=== PATIENT | male | born 1960 | race Caucasian/White ===

== ENCOUNTER 2017-09-09 09:44 | Outpatient (CLI) | payer MEDICARE ==
[2017-09-09 11:16] LABS: Hemoglobin 13.7 g/dL (14.0-18.0); Mean Corpuscular Hemoglobin 31.4 pg (27.0-31.0); Mean Corpuscular Volume 95.1 fl (80.0-94.0); Mean Platelet Volume 7.8 fL (7.4-10.4); Platelet Count 238 thou/uL (130-400); RBC Distribution Width 11.8 % (11.5-14.5); Red Blood Cell (RBC) Count 4.37 mill/uL (4.70-6.10); White Blood Cell (WBC) Count 8.3 thou/uL (4.8-10.8)
[2017-09-09 11:24] LABS: Prothrombin Time 13.5 SEC (12.0-14.7)
[2017-09-09 11:25] LABS: PTT 36.3 SEC (22.9-36.1)
[2017-09-09 11:28] LABS: ALT (SGPT) 43 U/L (8-55); AST (SGOT) 29 U/L (5-34); Albumin 4.6 g/dL (3.5-5.0); Alkaline Phosphatase 43 U/L (40-150); Anion Gap 15 mmol/L (10-20); BUN (Urea Nitrogen) 14 mg/dL (8.4-25.7); Bilirubin, Total 0.5 mg/dL (0.2-1.2); Calc. Creatinine Clearance 0 mL/min (70-130); Calcium 10.1 mg/dL (7.8-10.44); Carbon Dioxide 23 mmol/L (22-29); Cardiac Risk 5.2 (Less than 4.5); Chloride 106 mmol/L (98-107); Cholesterol 161 mg/dl (< 200 Desired); Estimated GFR-MDRD 57; Globulin 2.8 g/dL (2.4-3.5); Glucose 108 mg/dL (70-105); HDL Cholesterol 31 mg/dL (>60 Neg Risk); LDL Cholesterol, Calculated 98 mg/dL; Potassium 4.4 mmol/L (3.5-5.1); Protein, Total 7.4 g/dL (6.0-8.3); Sodium 140 mmol/L (136-145); Triglycerides 162 mg/dL (Less than 150)
--- NOTE | 2017-09-09 19:56 | EKG ---
Test Reason : Blood Pressure : / mmHG Vent. Rate : 067 BPM Atrial Rate : 067 BPM P-R Int : 160 ms QRS Dur : 082 ms QT Int : 386 ms P-R-T Axes : 028 045 -05 degrees QTc Int : 407 ms Normal sinus rhythm Low voltage QRS Cannot rule out Anterior infarct (cited on or before 08-JAN-2015) Abnormal ECG When compared with ECG of 15-JAN-2015 19:24, T wave inversion now evident in Inferior leads Confirmed by KIRSTY PEPPER, SCrescencio ([id number]) on 09/09/2017 7:56:00 PM Referred By: CHRISSY Confirmed By:DR. Alli LOFTON MD
== END 2017-09-09 09:45 | disposition home or self-care (01) ==
LOC: LABBT 09:44
PROVIDERS: ATTEND Internal Medicine Cardiovascular Disease
DX: Z01.812 Encounter for preprocedural laboratory examination (principal); I25.10 Atherosclerotic heart disease of native coronary artery without angina pectoris
CPT/HCPCS: 80053; 80061; 85027; 85610; 85730; 93005; 93010

== ENCOUNTER 2017-09-10 05:58 | Day surgery (SDC) | payer MEDICARE ==
[2017-09-09 10:07] VITALS: BMI 32.1
[2017-09-10] MEDS ORDERED: Heparin 10,000 UNITS/1 ML VIAL ONE (08:06)
[2017-09-10] MEDS ORDERED: Nitroglycerin 100MG/250ML BOT 250 ML ONE (08:06)
--- NOTE | 2017-09-10 10:33 | HP ---
INDICATION: This is a 57-year-old patient with a history of known coronary artery disease who was se en today in the outpatient facility setting to undergo angioplasty and stent placement to the right c oronary artery, which is the planned procedure. He was seen in the office back in 06/2017 for a lilibeth tablishment of cardiac care. He has had a pacemaker implanted in 01/2015, did not been seen in the [facility] since that due to the insurance, but as then returned, the interrogation showed kallie l threshold impedances. His function was essentially normal. He did complain of some chronic fatigu e and shortness of breath with mild exertion. The blood pressure was slightly elevated in the office , but then on repeat evaluation, it was found to be normal. He had a history of hypercholesterolemia , but it has been under relatively good control. He did not have any significant complaints for sign ificant chest pain or any other significant claudication type symptoms, but he originally was seen re cently for an acute FL. He has known coronary artery disease. He has undergone bypass surgery. He had been treated medically and was doing stable, but due to his fatigue and lack of followup, he was advised to undergo stress testing. He did undergo a stress test and was found to have inferior wall ischemia. He underwent cardiac catheterization and diagnostic study and was found to have severe rig ht coronary artery stenosis. He is being advised at this time to undergo angioplasty and stent place ment likely to the right coronary artery. His previous echocardiogram showed an ejection fraction of 60%-65% with grade II diastolic dysfunction and aortic valve sclerosis with some left atrial dilatat ion. PAST MEDICAL HISTORY: Significant for hypertension, dyslipidemia, history of TIAs, obstructive sleep apnea. He just uses a CPAP mask. He has had coronary artery disease and bypass surgery. He has hi story of sick sinus syndrome, has had pacemaker insertion due to sick sinus syndrome. He has hypothy roidism, type 2 diabetes. He has had CVAs. ALLERGIES: None. MEDICATIONS: Include Lovastatin 20 mg daily, metformin 500 mg b.i.d., Benicar/HCT 40 mg/12.5 mg 1 ta blet daily, Tirosint 25 mcg daily, Coreg 3.125 mg b.i.d. REVIEW OF SYSTEMS: General: Negative for weight gain, weight loss or fever. HEENT: No visual shahid ges or HEENT changes. Respiratory: He had no respiratory complaints except that he uses a CPAP mask . Cardiovascular: He complains of fatigue, but no significant chest discomfort, diaphoresis, palpit ations or syncope. Pacemaker function was normal and he has had no complaints from this perspective. He denied any claudication. Gastrointestinal: He had no significant complaints of nausea, vomitin g, or diarrhea. Genitourinary: He had no hematuria, nocturia, no history of erectile dysfunction. He had no history of tremors or goiters recently, no problem with thyroid. He is treated medically. Neurological: He has had some history of TIAs and has been complaining of some dizziness still, whi ch may be associated with his previous CVA. Psychiatric: He had no complaints of depression or taylor ucination. Skin: Negative for any rashes or skin sores. Musculoskeletal: He had no musculoskeleta l complaints. PHYSICAL EXAMINATION: GENERAL: Reveals a well-developed, well-nourished gentleman. VITAL SIGNS: Blood pressure 134/83, heart rate 73 and regular, respiratory rate 16. He is afebrile. HEENT: Shows head to be normocephalic and atraumatic. Carotid pulses are present. There were no br uits present. CHEST: Clear to auscultation, no rales, rhonchi or wheezing. CARDIOVASCULAR: Exam reveals a regular rate and rhythm, normal S1, S2, no S3, S4. There were no sig nificant murmurs, heaves, thrills, bruits or rubs. ABDOMEN: Soft and nontender, flat, positive bowel sounds. EXTREMITIES: Show no clubbing, cyanosis or edema. He has a well-healed midline surgical incision af ter his bypass surgery. NEUROLOGIC: The patient appears to be weak on the right upper extremity and right lower extremity. Otherwise, he is conscious and alert. SKIN: Warm and dry. IMPRESSION: 1. Coronary artery disease with history of previous bypass surgery and abnormal stress testing with cardiac catheterization, which indicated severe right coronary artery stenosis which will undergo ang ioplasty and stent placement. 2. Pacemaker insertion, which is stable without problems. We will continue to check him on a routin e basis. 3. Essential hypertension, this is under very good control at this time. We will continue his same medications. 4. History of hyperlipidemia. He is on chronic pharmacological therapy and tolerating medicines antoinette te well. We will continue to try to keep an LDL less than 70. 5. Atherosclerosis, coronary artery disease as noted above. No evidence of angina, but the patient does have diabetes and may not be experiencing chest discomfort, but he did have an abnormal stress t est. He understands the procedure. We have discussed this as far as angioplasty and stent placemen t. I explained the procedure and the risks to him to include bleeding, infection, possibly a myocard ial infarction, cerebrovascular accident, renal insufficiency, allergic contrast reaction, and even t he possibility of . He understands and agrees to proceed. We will plan for procedure this netta ing.
[2017-09-10] MEDS ORDERED: Iopamidol 370 76% 50 ML VIAL FS ONE (16:11)
[2017-09-10] MEDS ORDERED: Iopamidol 370 76% 100 ML VIAL ONE (16:11)
--- NOTE | 2017-09-10 22:33 | DIS ---
INDICATION FOR THE OUTPATIENT PROCEDURE: A 57-year-old patient with known coronary artery disease, s estefaníaus post bypass surgery who underwent a recent stress testing and was found to have an inferior wal l ischemia, underwent cardiac catheterization and was found to have severe stenosis of the right sarah nary artery, also has a history of dyslipidemia, hypertension, history of transient ischemic attacks, obstructive sleep apnea, history of sick sinus syndrome and pacemaker insertion, also type 2 diabete s, cerebrovascular accidents in the past and hypothyroidism. DISCHARGE DIAGNOSES: A 57-year-old patient with known coronary artery disease, status post bypass sheikh rgery who underwent a recent stress testing and was found to have an inferior wall ischemia, underwen t cardiac catheterization and was found to have severe stenosis of the right coronary artery, also núñez s a history of dyslipidemia, hypertension, history of transient ischemic attack, obstructive sleep ap kelly, history of sick sinus syndrome and pacemaker insertion, also type 2 diabetes, cerebrovascular ac cidents in the past and hypothyroidism. PROCEDURES IN HOSPITAL: Included a cardiac catheterization with evaluation only of the right coronar y artery with angioplasty and stent placement. DISCHARGE MEDICATIONS: Include lovastatin 20 mg a day, metformin 500 mg b.i.d., Benicar/hydrochlorot hiazide 40/12.5 one q. day, Tirosint 25 mcg q. day, Coreg 3.125 mg b.i.d., and Plavix 75 mg p.o. q. d ay as well as aspirin 81 mg q. day. DISCHARGE FOLLOWUP: His followup will be with me in 3-4 weeks in the office. He will continue his r outine followups with his primary care physician. He was also needing to undergo a prostate biopsy. We will need to wait at least 1 month prior to starting the medication. He was implanted with a non drug-coated stent. HOSPITAL COURSE: This is a very pleasant gentleman, 57 years old, with the above noted diagnoses, wa s found to have severe stenosis of right coronary artery, also has a history of grade II diastolic dy sfunction with aortic valve sclerosis, was advised to undergo angioplasty and stent placement to a se verely stenosed right coronary artery. This was performed today without difficulties or complication s. He was implanted with a 2.5 x 32 mm nondrug-coated stent into the right coronary in the proximal to mid areas without difficulties or complications. There was 0% residual stenosis noted. The patie nt tolerated the procedure well. I will see him back in the office. At this time, he remains stable and vital signs are stable. He can be discharged to home after he has been stable and the blood pre ssure and heart rate are fine and there is no bleeding from the puncture site in the right femoral ar katie.
== END 2017-09-10 17:55 | disposition home or self-care (01) ==
LOC: CCL 05:58
PROVIDERS: ATTEND Internal Medicine Cardiovascular Disease
DX: I25.10 Atherosclerotic heart disease of native coronary artery without angina pectoris (principal); E78.5 Hyperlipidemia, unspecified; I10 Essential (primary) hypertension; G47.33 Obstructive sleep apnea (adult) (pediatric); I49.5 Sick sinus syndrome; E11.9 Type 2 diabetes mellitus without complications; E03.9 Hypothyroidism, unspecified; Z79.84 Long term (current) use of oral hypoglycemic drugs; Z79.02 Long term (current) use of antithrombotics/antiplatelets; Z79.899 Other long term (current) drug therapy; Z95.1 Presence of aortocoronary bypass graft; Z95.0 Presence of cardiac pacemaker; Z95.5 Presence of coronary angioplasty implant and graft; Z98.890 Other specified postprocedural states; Z87.891 Personal history of nicotine dependence; Z86.73 Personal history of transient ischemic attack (TIA), and cerebral infarction without residual deficits
CPT/HCPCS: 85347 ×3; 92928; 93454; 93798; C1725; C1769 ×2; C1876; C1887; J1644

== ENCOUNTER 2019-05-25 13:10 | Outpatient (CLI) | payer MEDICARE ==
--- NOTE | 2019-05-25 14:43 | RAD ---
EXAM: XR Lumbar Spine 2 Or 3 View PROVIDED CLINICAL HISTORY: Low back pain. COMPARISON: None FINDINGS: Scattered osteophytes are seen in the lumbar spine. There is narrowing of the L5-S1 intervertebral di sc space. The vertebral body heights are within normal limits. No fracture or subluxation is appreciated. Facet degenerative changes in the lower lumbar spine. Vascular calcification are seen in the abdominal aorta and involving the iliac arteries. IMPRESSION: Mild degenerative changes of the lumbar spine, but no fracture or subluxation is seen on the lateral images.
--- NOTE | 2019-05-25 15:17 | MRI ---
MRI LUMBAR SPINE WITHOUT CONTRAST: INDICATIONS: Low back pain. Radiation to both lower extremities. FINDINGS: The lumbar vertebrae maintain height and alignment. Vertebral body signal appears normal. Degenerati ve disk changes are prominent at L5-S1. Degenerative disk and endplate changes are noted at this leve l. The other disk spaces are preserved. At L1-L2 no significant disk bulge. No central canal or foraminal stenosis. At L2-L3 no disk bulge or protrusion. Mild facet arthrosis. No central canal or foraminal stenosis. At L3-L4 no significant disk bulge. Moderate facet hypertrophy. No central canal or foraminal stenosi s. At L4-L5 no significant disk bulge. Mild facet arthrosis. No significant central canal or foraminal s tenosis. At L5-S1 there is annular fissure with a small focal disk protrusion centrally and to the left. This abuts the anterior thecal sac. There is no significant central canal stenosis. There is mild left for aminal encroachment due to the asymmetric bulge to the left and facet hypertrophy. IMPRESSION: Degenerative disk changes at L5-S1 are prominent. There is a broad-based bulge and small focal protru nate centrally and to the left with associated annular fissure. No significant central canal stenosis . Mild left foraminal encroachment. POS: [facility]
== END 2019-05-25 13:11 | disposition home or self-care (01) ==
LOC: MRI 13:10
PROVIDERS: ATTEND Neurological Surgery
DX: M54.5 Low back pain (principal); M47.816 Spondylosis without myelopathy or radiculopathy, lumbar region; M51.37 Other intervertebral disc degeneration, lumbosacral region; M51.27 Other intervertebral disc displacement, lumbosacral region
CPT/HCPCS: 72100; 72148